=== PATIENT | female | born 1950 | race Caucasian/White ===

== ENCOUNTER 2019-08-06 09:40 | Emergency (ER) | payer MEDICARE, OTHER ==
[~2019-08-06] VITALS: Ht 157.5 cm; Wt 42.0 kg
[2019-08-06] MEDS ORDERED: NAPR250T4 PO (10:08)
[2019-08-06] MEDS ORDERED: DEXAMETHASONE 4 MG TABLET PO ONE (11:30)
[2019-08-06] MEDS ORDERED: ACETAMINOPHEN 325 MG TABLET PO ONE (11:30)
[2019-08-06 12:41] VITALS: BP 155/85
== END 2019-08-06 12:59 | disposition home or self-care (01) ==
LOC: EMS 09:42
DX: R51 Headache (principal); Z88.8 Allergy status to other drugs, medicaments and biological substances
CPT/HCPCS: 70450; 99284; J8540